=== PATIENT | female | born 1995 | race Asian ===

== ENCOUNTER 2018-01-24 16:12 | Emergency (ER) | payer SELFPAY | END 2018-01-24 17:40 | disposition home or self-care (01) | LOC: ER 16:12 | DX: S60.212A Contusion of left wrist, initial encounter (principal); X58.XXXA Exposure to other specified factors, initial encounter; Y93.89 Activity, other specified; Y92.89 Other specified places as the place of occurrence of the external cause; Y99.8 Other external cause status | CPT/HCPCS: 73110; 99284 ==